=== PATIENT | male | born 1985 | race African-American/Black ===

== ENCOUNTER 2019-03-16 20:59 | Emergency (ER) | payer MEDICARE, OTHER ==
[~2019-03-16] VITALS: Ht 182.9 cm; Wt 80.0 kg
[2019-03-16] MEDS ORDERED: SODIUM CHLORIDE 0.9% 1,000 ML IV ONE (21:33)
[2019-03-16] MEDS ORDERED: DIPHENHYDRAMINE 50MG/ML VIAL IM STA (21:33)
[2019-03-16] MEDS ORDERED: HALOPERIDOL LACTATE 5MG/ML VIAL IM ONE ×2 (21:45)
[2019-03-16] MEDS ORDERED: LORAZEPAM 2MG/ML CPJ IM ONE (22:30)
[2019-03-16 23:22] LABS: BASOPHILS % 0.7 % (0.0-2.0); EOSINOPHILS % 0.5 % (0.0-5.0); HEMATOCRIT. 39.9 % (42.0-52.0); HEMOGLOBIN. 13.4 g/dL (14.0-18.0); LYMPHOCYTES % 27.9 % (20.0-50.0); MEAN CORPUSCULAR VOLUME 89.4 fL (80.0-94.0); NEUTROPHILS % 63.9 % (40.0-76.0); PLATELET 143 x1000/uL (130-400); RED BLOOD CELL COUNT 4.46 mill/uL (4.7-6.1)
[2019-03-16 23:24] LABS: CHLORIDE 111 mEq/L (98-107)
[2019-03-16 23:29] LABS: ETHANOL BLOOD 177 mg/dL
[2019-03-17 00:08] LABS: CLARITY URINE CLEAR (CLEAR); COLOR URINE YELLOW (YELLOW); KETONES URINE NEGATIVE (NEGATIVE); LEUKOCYTE ESTERASE URINE NEGATIVE (NEGATIVE); NITRITE URINE NEGATIVE (NEGATIVE); OCCULT BLOOD URINE NEGATIVE (NEGATIVE); PROTEIN URINE NEGATIVE (NEGATIVE); SPECIFIC GRAVITY URINE 1.006 (1.005-1.030); UROBILINOGEN URINE 0.2 E.U./dL (0.2-1.0)
[2019-03-17] MEDS ORDERED: LORAZEPAM 2MG/ML CPJ IV ONE (00:15)
[2019-03-17 00:18] LABS: *AMPHETAMINES SCREEN URINE NEGATIVE (NEGATIVE); *BARBITURATES SCREEN URINE NEGATIVE (NEGATIVE); *BENZODIAZEPINES SCREEN URINE NEGATIVE (NEGATIVE); *COCAINE SCREEN URINE NEGATIVE (NEGATIVE); METHADONE URINE SCREEN NEGATIVE (NEGATIVE); OPIATES URINE SCREEN NEGATIVE (NEGATIVE)
[2019-03-17 00:19] LABS: CANNABINOID URINE SCREEN PRESUMTIVE POSITIVE (NEGATIVE); PHENCYCLIDINE URINE SCREEN NEGATIVE (NEGATIVE)
[2019-03-17 09:18] VITALS: BP 118/78
== END 2019-03-17 12:33 | disposition home or self-care (01) ==
LOC: ER 20:59
DX: R45.6 Violent behavior (principal); F10.129 Alcohol abuse with intoxication, unspecified; Y90.6 Blood alcohol level of 120-199 mg/100 ml
CPT/HCPCS: 36415; 70450; 70486; 80053; 80305; 80307; 80320; 80329; 81003; 85025; 96372; 99284; J1200; J1630; J2060; J7030; G0480

== ENCOUNTER 2021-02-03 20:14 | Emergency (ER) | payer MEDICARE, OTHER ==
[~2021-02-03] VITALS: Ht 172.7 cm; Wt 75.0 kg
[2021-02-03] MEDS ORDERED: LORAZEPAM 0.5MG TABLET PO ONE (21:30)
[2021-02-03] MEDS ORDERED: ACETAMINOPHEN 325MG TABLET PO ONE (21:30)
[2021-02-03 22:45] VITALS: BP 144/74
== END 2021-02-03 22:45 | disposition home or self-care (01) ==
LOC: ER 20:14
DX: S52.91XA Unspecified fracture of right forearm, initial encounter for closed fracture (principal); F17.200 Nicotine dependence, unspecified, uncomplicated; Y04.0XXA Assault by unarmed brawl or fight, initial encounter; Y93.89 Activity, other specified; Y92.89 Other specified places as the place of occurrence of the external cause; Y99.8 Other external cause status
CPT/HCPCS: 73090; 99283

== ENCOUNTER 2021-03-19 16:45 | Emergency (ER) | payer MEDICARE, MEDICAID, OTHER ==
[~2021-03-19] VITALS: Ht 172.7 cm; Wt 65.0 kg
[2021-03-19] MEDS ORDERED: HYDROCODONE/ACETAMINOPHEN 5/325MG TABLET PO ONE (19:30)
[2021-03-19 19:57] VITALS: BP 126/87
[2021-03-19] MEDS ORDERED: TOPUD MT (22:46)
== END 2021-03-19 23:21 | disposition home or self-care (01) ==
LOC: ER 16:45
DX: S60.221A Contusion of right hand, initial encounter (principal); S50.11XA Contusion of right forearm, initial encounter; Y08.89XA Assault by other specified means, initial encounter; Y93.89 Activity, other specified; Y92.89 Other specified places as the place of occurrence of the external cause; Y99.8 Other external cause status; K21.9 Gastro-esophageal reflux disease without esophagitis; F12.10 Cannabis abuse, uncomplicated
CPT/HCPCS: 29130; 73090; 73130; 99284; A4565

== ENCOUNTER 2022-02-17 18:01 | Emergency (ER) | payer MEDICARE, OTHER ==
[~2022-02-17] VITALS: Ht 170.2 cm; Wt 68.0 kg
[~2022-02-17 18:01] MED LIST: TOPUD MT
[2022-02-17] MEDS ORDERED: IBUPROFEN 400MG TABLET PO ONE (18:15)
[2022-02-17] MEDS ORDERED: HYDROCODONE/ACETAMINOPHEN 5/325MG TABLET PO ONE (18:15)
[2022-02-17 19:29] VITALS: BP 130/94
[2022-02-17] MEDS ORDERED: IBUP-2028 MT (20:18)
[2022-02-17] MEDS ORDERED: CYCL10TA7 MT (20:18)
== END 2022-02-17 21:16 | disposition home or self-care (01) ==
LOC: ER 18:23
DX: S20.212A Contusion of left front wall of thorax, initial encounter (principal); S40.022A Contusion of left upper arm, initial encounter; V00.131A Fall from skateboard, initial encounter; Y93.89 Activity, other specified; Y92.89 Other specified places as the place of occurrence of the external cause; Y99.8 Other external cause status; K21.9 Gastro-esophageal reflux disease without esophagitis; F17.290 Nicotine dependence, other tobacco product, uncomplicated; F12.10 Cannabis abuse, uncomplicated
CPT/HCPCS: 71101; 73060; 99284